=== PATIENT | female | born 1975 | race Caucasian/White ===

== ENCOUNTER 2017-09-03 09:27 | Outpatient (CLI) | payer OTHER ==
[2017-09-03 17:56] LABS: ALBUMIN/GLOBULIN RATIO 1.2 (1.0-2.2); BILIRUBIN,TOTAL 0.8 mg/dL (0.2-1.0); CALCIUM 8.7 mg/dL (8.5-10.3); CREATININE 0.9 mg/dL (0.4-1.0); TOTAL PROTEIN 7.3 g/dL (6.7-8.2)
[2017-09-03 17:58] LABS: T4 (THYROXINE) 8.21 ug/dL (6.09-12.23)
[2017-09-03 18:02] LABS: THYROID STIMULATING HORMONE 1.96 uIU/mL (0.34-5.60)
[2017-09-03 18:04] LABS: FREE T4 (FREE THYROXINE) 1.02 ng/dL (0.58-1.64)
[2017-09-03 18:19] LABS: BASOPHILS % (AUTO) 0.5 %; EOSINOPHILS % (AUTO) 0.9 %; HGB - HEMOGLOBIN 14.2 g/dL (12.0-16.0); LYMPHOCYTES # (AUTO) 1.7 10^3/uL (1.5-3.5); LYMPHOCYTES % (AUTO) 35.3 %; MEAN CORPUSCULAR HEMOGLOBIN 30.4 pg (27.0-31.0); MEAN CORPUSCULAR HGB CONC 33.5 g/dL (32.0-36.0); MEAN CORPUSCULAR VOLUME 90.7 fL (81.0-99.0); MEAN PLATELET VOLUME 7.6 fL (7.9-10.8); MONOCYTES # (AUTO) 0.3 10^3/uL (0.0-1.0); NEUTROPHILS # (AUTO) 2.7 10^3/uL (1.5-6.6); NEUTROPHILS % (AUTO) 56.3 %; PLT - PLATELET COUNT 304 10^3/uL (130-450); RED BLOOD COUNT 4.66 10^6/uL (4.20-5.40); RED CELL DISTRIBUTION WIDTH 13.5 % (12.0-15.0); WHITE BLOOD COUNT 4.7 x10^3/uL (4.8-10.8)
== END 2017-09-03 09:28 | disposition home or self-care (01) ==
LOC: LAB.F 09:27
PROVIDERS: ATTEND Nurse Practitioner Family
DX: E03.2 Hypothyroidism due to medicaments and other exogenous substances (principal)
CPT/HCPCS: 36415; 80053; 84436; 84439; 84443; 84481; 85025

== ENCOUNTER 2017-09-21 10:21 | Outpatient (CLI) | payer OTHER ==
[2017-09-21 18:29] LABS: BASOPHILS % (AUTO) 0.5 %; EOSINOPHILS % (AUTO) 0.9 %; HGB - HEMOGLOBIN 15.1 g/dL (12.0-16.0); LYMPHOCYTES # (AUTO) 1.3 10^3/uL (1.5-3.5); LYMPHOCYTES % (AUTO) 26.6 %; MEAN CORPUSCULAR HEMOGLOBIN 30.2 pg (27.0-31.0); MEAN CORPUSCULAR HGB CONC 33.6 g/dL (32.0-36.0); MEAN CORPUSCULAR VOLUME 90.1 fL (81.0-99.0); MEAN PLATELET VOLUME 7.7 fL (7.9-10.8); MONOCYTES # (AUTO) 0.3 10^3/uL (0.0-1.0); MONOCYTES % (AUTO) 6.6 %; NEUTROPHILS # (AUTO) 3.1 10^3/uL (1.5-6.6); NEUTROPHILS % (AUTO) 65.4 %; PLT - PLATELET COUNT 285 10^3/uL (130-450); RED BLOOD COUNT 5.01 10^6/uL (4.20-5.40); RED CELL DISTRIBUTION WIDTH 13.3 % (12.0-15.0); WHITE BLOOD COUNT 4.7 x10^3/uL (4.8-10.8)
[2017-09-21 18:51] LABS: ALBUMIN 4.3 g/dL (3.2-5.5); ALBUMIN/GLOBULIN RATIO 1.3 (1.0-2.2); ALKALINE PHOSPHATASE 49 IU/L (42-121); ALT ALANINE AMINOTRANSFERASE 45 IU/L (10-60); AST ASPARTATE AMINOTRANSFERASE 25 IU/L (10-42); BUN - BLOOD UREA NITROGEN 15 mg/dL (6-20); CALCIUM 9.3 mg/dL (8.5-10.3); CARBON DIOXIDE - CO2 22 mmol/L (21-32); CHLORIDE 107 mmol/L (101-111); CHOL/HDL RATIO 4.9 (<4.4); CHOLESTEROL 191 mg/dL; CREATININE 0.9 mg/dL (0.4-1.0); GFR - MDRD 68 (>89); GLUCOSE 98 mg/dL (70-100); HDL CHOLESTEROL 39 mg/dL; LDL CHOLESTEROL,CALCULATED 124 mg/dL; LDL/HDL RATIO 3.2 (<4.4); SODIUM 138 mmol/L (135-145); TOTAL PROTEIN 7.7 g/dL (6.7-8.2); VLDL CHOLESTEROL 28 mg/dL
[2017-09-21 19:36] LABS: HEMOGLOBIN A1C 0.58 g/dL; HEMOGLOBIN A1C % 5.3 % (4.6-6.2)
== END 2017-09-21 10:22 | disposition home or self-care (01) ==
LOC: LAB.F 10:21
PROVIDERS: ATTEND Nurse Practitioner Family
DX: Z00.00 Encounter for general adult medical examination without abnormal findings (principal); E55.9 Vitamin D deficiency, unspecified; E78.5 Hyperlipidemia, unspecified
CPT/HCPCS: 36415; 80053; 80061; 81599; 82306; 82728; 83036; 83721; 85025

== ENCOUNTER 2019-03-21 00:12 | Outpatient (CLI) | payer OTHER | END 2019-03-21 00:13 | disposition critical access hospital (66) | LOC: EMS 00:12 | PROVIDERS: ATTEND Surgery | DX: R55 Syncope and collapse (principal); R61 Generalized hyperhidrosis; R47.9 Unspecified speech disturbances | CPT/HCPCS: A0425; A0427 ==

== ENCOUNTER 2019-03-22 00:37 | Emergency (ER) | payer OTHER ==
--- NOTE | 2019-03-22 01:19 | ED Physician Documentation ---
PD HPI URI - Stated complaint Stated Complaint: CHILLS - Chief complaint Chief Complaint: General - History obtained from History obtained from: Patient, EMS - History of Present Illness Timing - onset: How many hours ago (1), Today Timing duration: Hours (1) Timing details: Abrupt onset, Now resolved (resolving though still feeling a little tremorous. The sweating has subsided.) Associated symptoms: Chills (had feeling of lightheaded and profuse sweating, actually soaking her shirt and dripping from her. No chest pain. Had feeling of nausea and abd fullness. Abrupt onset and did not improve with walking around. [place] tremorous in body. Concerned her enough to call 911.). No: Fever Contributing factors: No: Sick contact, Travel Similar symptoms before: Has not had sx before Recently seen: Not recently seen Review of Systems Constitutional: denies: Fever, Chills Nose: denies: Rhinorrhea / runny nose, Congestion Throat: denies: Sore throat Cardiac: denies: Chest pain / pressure Respiratory: denies: Dyspnea GI: reports: Nausea. denies: Vomiting, Diarrhea Skin: denies: Rash (her daughter told her she looked flushed.), Lesions Neurologic: reports: Generalized weakness. denies: Focal weakness, Numbness, Near syncope PD PAST MEDICAL HISTORY - Past Medical History Past Medical History: No Cardiovascular: None Respiratory: None Neuro: None Endocrine/Autoimmune: None GI: None DAIRY MANAGEMENT SPECIALIST: None : None HEENT: None Psych: None Musculoskeletal: None Derm: None - Past Surgical History Past Surgical History: Yes General: Appendectomy HEENT: Tonsil/Adenoidectomy - Present Medications Home Medications: Ambulatory Orders Medication Instructions Recorded Confirmed No Known Home Medications 03/22/19 03/22/19 - Allergies Allergies/Adverse Reactions: Allergies Allergy/AdvReac Type Severity Reaction Status Date / Time No Known Drug Allergies Allergy Verified 03/22/19 00:46 - Social History Does the pt smoke?: No Smoking Status: Never smoker Does the pt drink ETOH?: Yes Does the pt have substance abuse?: No - Immunizations Immunizations are current?: No - POLST Patient has POLST: No PD ED PE NORMAL - Vitals Vital signs reviewed: Yes - General General: Alert and oriented X 3, No acute distress, Well developed/nourished - HEENT HEENT: Pharynx benign - Neck Neck: Supple, no meningeal sign, No adenopathy - Cardiac Cardiac: RRR, No murmur - Respiratory Respiratory: Clear bilaterally - Abdomen Abdomen: Soft, Non tender - Derm Derm: Normal color, Warm and dry - Extremities Extremities: No tenderness to palpate, Normal ROM s pain, No edema, No calf tenderness / cord - Neuro Neuro: Alert and oriented X 3, No motor deficit, Normal speech Results - Vitals Vitals: Vital Signs - 24 hr 03/22/19 03/22/19 00:41 02:44 Temperature 37.5 C 36.7 C Heart Rate 89 96 Respiratory 18 16 Rate Blood Pressure 159/79 H 134/81 H O2 Saturation 100 98 Oxygen O2 Source Room air - EKG (time done) 01:50 Rate: Rate (enter#) (81) Rhythm: NSR [place]: Normal Intervals: Normal ND QRS: Normal Ischemia: Normal ST segments. No: ST elevation c/w ischemia, ST depression - Labs Labs: Laboratory Tests 03/22/19 03/22/19 03/22/19 01:51 01:51 01:51 WBC 8.4 RBC 4.35 Hgb 13.5 Hct 39.5 MCV 90.8 MCH 31.0 MCHC 34.2 RDW 13.2 Plt Count 303 MPV 9.1 Neut # (Auto) 6.0 Lymph # (Auto) 1.7 [place] # (Auto) 0.6 Eos # (Auto) 0.0 Baso # (Auto) 0.0 Absolute Nucleated RBC 0.00 Nucleated RBC % 0.0 Sodium 139 Potassium 3.9 Chloride 106 Carbon Dioxide 21 Anion Gap 12.0 BUN 13 Creatinine 0.9 Estimated GFR (MDRD) 68 L Glucose 156 H Calcium 8.9 Magnesium 2.0 Total Bilirubin 0.4 AST 26 ALT 49 Alkaline Phosphatase 48 Troponin I High Sens 2.4 Total Protein 7.2 Albumin 3.9 Globulin 3.3 Albumin/Globulin Ratio 1.2 Lipase 30 TSH 03/22/19 01:51 WBC RBC Hgb Hct MCV MCH MCHC RDW Plt Count MPV Neut # (Auto) Lymph # (Auto) [place] # (Auto) Eos # (Auto) Baso # (Auto) Absolute Nucleated RBC Nucleated RBC % Sodium Potassium Chloride Carbon Dioxide Anion Gap BUN Creatinine Estimated GFR (MDRD) Glucose Calcium Magnesium Total Bilirubin AST ALT Alkaline Phosphatase Troponin I High Sens Total Protein Albumin Globulin Albumin/Globulin Ratio Lipase TSH 2.31 PD MEDICAL DECISION MAKING - ED course Complexity details: considered differential (seems like vasovagal or even some cholinergic response, but not foods nor meds to account for it. Had eaten "junk food" which is unusual and had couple cokes soda, also not too commmon. could have been vasovagal from intestinal distension. ), d/w patient, d/w family Departure - Departure Disposition: Home, Self Care Clinical Impression: Sweating profusely, Vasovagal response Condition: Stable Record reviewed to determine appropriate education?: Yes Instructions: ED Near Syncope Vasovagal Comments: Your basic blood tests and EKG are normal here. Your blood pressure is good. This may have been an abnormal body response to some distention of the stomach or intestine (called a vasovagal response). Consider an allergic reaction but it does not sound like the food you ate were unusual enough for that. At this point you look good and no follow-up needed unless you have repeat episodes. Discharge Date/Time: 03/22/19 03:00
[2019-03-22 01:57] LABS: BASOPHILS % (AUTO) 0.2 %; EOSINOPHILS % (AUTO) 0.2 %; HGB - HEMOGLOBIN 13.5 g/dL (12.0-16.0); LYMPHOCYTES # (AUTO) 1.7 10^3/uL (1.5-3.5); LYMPHOCYTES % (AUTO) 20.4 %; MEAN CORPUSCULAR HGB CONC 34.2 g/dL (32.0-36.0); MEAN CORPUSCULAR VOLUME 90.8 fL (81.0-99.0); MEAN PLATELET VOLUME 9.1 fL (7.9-10.8); MONOCYTES # (AUTO) 0.6 10^3/uL (0.0-1.0); MONOCYTES % (AUTO) 6.8 %; PLT - PLATELET COUNT 303 10^3/uL (130-450); RED BLOOD COUNT 4.35 10^6/uL (4.20-5.40); RED CELL DISTRIBUTION WIDTH 13.2 % (12.0-15.0); WHITE BLOOD COUNT 8.4 x10^3/uL (4.8-10.8)
[2019-03-22 02:09] LABS: ALBUMIN 3.9 g/dL (3.2-5.5); ALBUMIN/GLOBULIN RATIO 1.2 (1.0-2.2); BILIRUBIN,TOTAL 0.4 mg/dL (0.2-1.0); CALCIUM 8.9 mg/dL (8.5-10.3); CREATININE 0.9 mg/dL (0.4-1.0); TOTAL PROTEIN 7.2 g/dL (6.7-8.2)
[2019-03-22 02:45] VITALS: BP 134/81
== END 2019-03-22 03:00 | disposition home or self-care (01) ==
LOC: EDUNIT# → ED 00:37
DX: R61 Generalized hyperhidrosis (principal); R55 Syncope and collapse
CPT/HCPCS: 36415; 80053; 83690; 83735; 84443; 84484; 85025; 93005; 99282; 99283